=== PATIENT | male | born 1950 | race Caucasian/White ===

== ENCOUNTER 2017-06-04 13:21 | Emergency (ER) | payer MEDICARE, OTHER ==
[~2017-06-04] VITALS: Ht 177.8 cm; Wt 95.3 kg
[~2017-06-04 13:21] MED LIST: ATEN-41; FENO145T; HYDR25TA4; SIMV5TAB53
[2017-06-04 13:25] VITALS: BP_SYST 163
--- NOTE | 2017-06-04 13:30 | NUR ---
Patient to ER bed 07 to gown for evaluation. Side rails up. Report given to Gaye
--- NOTE | 2017-06-04 13:36 | NUR ---
ER at bedside examining patient.
--- NOTE | 2017-06-04 13:39 | NUR ---
pt left eye hit by a baseball while playing with his grandson 2 hours ago, a hematoma bruising to left eye and superfacial abrasion with mimimal bleeding.pt reports he passed out for a few seconds.PT is fully awake,alert oriented x4.
[2017-06-04] MEDS ORDERED: HYDROcodone/ACETAMIN 5-325 MG TAB (NORCO/ VICODIN) PO ONE (14:30)
--- NOTE | 2017-06-04 15:15 | NUR ---
Patient given written and verbal discharge instructions and verbalizes understanding. ER MD discussed with patient the results and treatment provided. Patient in stable condition. ID arm band removed. Rx of AMOXICILLIN AND NORCO given. Patient educated on pain management and to follow up with PMD. Pain Scale 2/10. Opportunity for questions provided and answered.
[2017-06-04 15:17] VITALS: BP_SYST 150
== END 2017-06-04 15:15 | disposition home or self-care (01) ==
LOC: SED 13:21
DX: S02.32XA Fracture of orbital floor, left side, initial encounter for closed fracture (principal); S02.2XXA Fracture of nasal bones, initial encounter for closed fracture; I10 Essential (primary) hypertension; Z79.899 Other long term (current) drug therapy; W21.03XA Struck by baseball, initial encounter; Y93.64 Activity, baseball; Y92.89 Other specified places as the place of occurrence of the external cause; Y99.8 Other external cause status
CPT/HCPCS: 70480; 99284

== ENCOUNTER 2017-12-12 12:20 | Inpatient (IN) | payer OTHER ==
[~2017-12-12] VITALS: Ht 172.7 cm; Wt 92.5 kg
[2017-12-12] VITALS (7 sets, daily range): BP systolic 116–139
[2017-12-12] MEDS ORDERED: NACL 0.9% 1,000 ML IV ONE ×3 (13:38→22:00)
[2017-12-12] MEDS ORDERED: ONDANSETRON HCL 4 MG/2 ML VIAL IVP ONE (13:45)
[2017-12-12] MEDS ORDERED: HYDROmorphone 1 MG INJ. 1 MG/ML AMPUL IVP ONE (13:45)
[2017-12-12] MEDS ORDERED: HYDROmorphone 2 MG/ML VIAL ONE (13:51)
[2017-12-12 14:02] LABS: CALCIUM 9.1 mg/dL (8.4-11.0); CREATININE 1.98 mg/dL (0.55-1.30); POTASSIUM 3.2 mmol/L (3.5-5.1)
[2017-12-12 14:13] LABS: BASOPHILS % (AUTO) 0.3 % (0.0-2.0); HEMATOCRIT 45.1 % (36-54); HEMOGLOBIN 14.8 g/dL (14.0-18.0); LYMPHOCYTES # (AUTO) 0.9 K/uL (1.0-5.5); LYMPHOCYTES % (AUTO) 6.8 % (20.5-51.5); MEAN CORPUSCULAR HEMOGLOBIN 29 pg (27-31); MEAN CORPUSCULAR HGB CONC 33 % (32-36); MEAN CORPUSCULAR VOLUME 89 fL (79.0-98.0); MONOCYTES # (AUTO) 1.1 K/uL (0.0-1.0); MONOCYTES % (AUTO) 8.3 % (1.7-9.3); NEUTROPHILS # (AUTO) 11.5 K/uL (1.8-7.7); NEUTROPHILS % (AUTO) 84.6 % (40.0-70.0); PLATELET COUNT (AUTO) 186 K/uL (130-430); RED BLOOD CELL COUNT(AUTO) 5.04 MIL/uL (4.2-6.2); WHITE BLOOD COUNT (AUTO) 13.5 K/uL (4.8-10.8)
[2017-12-12 14:14] LABS: TOTAL BILIRUBIN 0.6 mg/dL (0.0-1.0)
[2017-12-12 14:19] LABS: BILIRUBIN,URINE NEGATIVE (NEGATIVE); BLOOD, URINE TRACE (NEGATIVE); CLARITY/URINE CLEAR (CLEAR); COLOR,URINE YELLOW (YELLOW); GLUCOSE,URINE NEGATIVE (NEGATIVE); KETONES,URINE NEGATIVE (NEGATIVE); LEUKOCYTE ESTERASE ,URINE NEGATIVE (NEGATIVE); PH,URINE 5.5 (5.0-8.0); PROTEIN URINE 2+ (NEGATIVE)
[2017-12-12 14:20] LABS: NITRITE, URINE NEGATIVE (NEGATIVE); UROBILINOGEN,URINE 0.2 (0.2-1.0)
[2017-12-12 14:31] LABS: INR 1.1 (0.80-1.20); PROTHROMBIN TIME 10.8 SECS (9.5-12.5)
[2017-12-12 14:47] LABS: BACTERIA,URINE MODERATE /HPF (None Seen); RBC,URINE 0-3 /HPF (0-3)
[2017-12-12] MEDS ORDERED: cefTRIAXone 2 GM VIAL ONE (15:47)
[2017-12-12] MEDS ORDERED: ONDANSETRON HCL 4 MG/2 ML VIAL IVP PRN (17:45)
[2017-12-12] MEDS: ACETAMINOPHEN 325 MG TABLET PO PRN ×2 (20:15→23:58)
[2017-12-12] MEDS: D5NS 1,000 ML IV SCH (20:16)
[2017-12-13] VITALS (24 sets, daily range): BP systolic 109–164
[2017-12-13] MEDS: LORazepam 2 MG/ML VIAL IVP PRN ×3 (00:15→23:08)
[2017-12-13] MEDS: MORPHINE 2 MG/ML INJ. SYRINGE IVP PRN ×4 (00:37→19:50)
[2017-12-13] MEDS ORDERED: MORPHINE 2 MG/ML INJ. SYRINGE ONE (00:37)
[2017-12-13] MEDS ORDERED: LEVOFLOXACIN 500 MG/D5W 100 ML IV ONE ×2 (01:00→01:09)
[2017-12-13] MEDS ORDERED: LEVOFLOXACIN 500 MG/D5W 100 ML IV SCH (01:00)
[2017-12-13] MEDS: ACETAMINOPHEN 325 MG TABLET PO PRN ×4 (04:33→17:37)
[2017-12-13] MEDS: D5NS 1,000 ML IV SCH ×3 (04:42→20:50)
[2017-12-13 06:44] LABS: MEAN CORPUSCULAR HEMOGLOBIN 31 pg (27-31); MEAN CORPUSCULAR HGB CONC 34 % (32-36); MEAN CORPUSCULAR VOLUME 90 fL (79.0-98.0); PLATELET COUNT (AUTO) 133 K/uL (130-430); RED CELL DISTRIBUTION WIDTH 12.8 % (9.0-15.0); WHITE BLOOD COUNT (AUTO) 12.1 K/uL (4.8-10.8)
[2017-12-13 07:17] LABS: ALBUMIN 2.9 g/dL (3.4-4.8); CALCIUM 7.9 mg/dL (8.4-11.0); CREATININE 1.83 mg/dL (0.55-1.30); POTASSIUM 3.1 mmol/L (3.5-5.1); TOTAL BILIRUBIN 0.6 mg/dL (0.0-1.0)
[2017-12-13] MEDS ORDERED: TAMS-11 PO (07:57)
[2017-12-13] MEDS: PANTOPRAZOLE SODIUM 40 MG/VIAL (PROTONIX) IVP SCH (08:05)
[2017-12-13] MEDS: PIPERACILLIN/TAZO 2.25G/DEX-IS 50 ML IV SCH ×4 (09:23→23:13)
[2017-12-13] MEDS: TAMSULOSIN HCL 0.4 MG CAP PO SCH (09:37)
[2017-12-13 10:15] LABS: BAND % (MANUAL) 12 % (0-6); BASOPHILS % (MANUAL) 0 % (0-2); EOSINOPHILS % (MANUAL) 0 % (0-7); LYMPHOCYTES % (MANUAL) 11 % (20-46); MONOCYTES % (MANUAL) 6 % (0-11)
[2017-12-13] MEDS ORDERED: GENTAMICIN 100 mg/50 mL NS 50 ML IV ONE (12:00)
[2017-12-13] MEDS ORDERED: POTASSIUM CHLORIDE 40 MEQ, LIDOCAINE JECT 2% PF 100 MG 50 MG in NS 250 ML IV ONE (14:30)
[2017-12-13] MEDS ORDERED: cefTRIAXone 1 GM IVPB PREMIX 50 ML IV SCH (21:00)
[2017-12-13] MEDS ORDERED: FENO160 PO (21:01)
[2017-12-13] MEDS ORDERED: ATEN-41 PO (21:01)
[2017-12-13] MEDS ORDERED: SIMV40TA2 PO (21:01)
[2017-12-13] MEDS ORDERED: TRIA1CAP53 PO (21:01)
[2017-12-14] VITALS (17 sets, daily range): BP systolic 125–165
[2017-12-14] MEDS ORDERED: TEMAZEPAM 15 MG CAPSULE PO PRN (01:45)
[2017-12-14] MEDS ORDERED: TEMAZEPAM 15 MG CAPSULE ONE (01:52)
[2017-12-14] MEDS: PIPERACILLIN/TAZO 2.25G/DEX-IS 50 ML IV SCH ×4 (05:07→23:37)
[2017-12-14 06:45] LABS: HEMATOCRIT 35.5 % (36-54); HEMOGLOBIN 12.1 g/dL (14.0-18.0); MEAN CORPUSCULAR HEMOGLOBIN 31 pg (27-31); MEAN CORPUSCULAR HGB CONC 34 % (32-36); MEAN CORPUSCULAR VOLUME 91 fL (79.0-98.0); PLATELET COUNT (AUTO) 117 K/uL (130-430); RED BLOOD CELL COUNT(AUTO) 3.92 MIL/uL (4.2-6.2); RED CELL DISTRIBUTION WIDTH 13.1 % (9.0-15.0); WHITE BLOOD COUNT (AUTO) 11.9 K/uL (4.8-10.8)
[2017-12-14] MEDS: D5NS 1,000 ML IV SCH ×2 (07:11→17:12)
[2017-12-14 07:14] LABS: ALBUMIN 2.6 g/dL (3.4-4.8); CREATININE 1.41 mg/dL (0.55-1.30); POTASSIUM 3.4 mmol/L (3.5-5.1); TOTAL BILIRUBIN 0.7 mg/dL (0.0-1.0)
[2017-12-14] MEDS: ACETAMINOPHEN 325 MG TABLET PO PRN (08:15)
[2017-12-14] MEDS: TAMSULOSIN HCL 0.4 MG CAP PO SCH (08:15)
[2017-12-14] MEDS: PANTOPRAZOLE SODIUM 40 MG/VIAL (PROTONIX) IVP SCH (08:15)
[2017-12-14] MEDS: IBUPROFEN 400 MG TABLET PO PRN ×3 (09:54→23:38)
[2017-12-14 10:52] LABS: BAND % (MANUAL) 4 % (0-6); LYMPHOCYTES % (MANUAL) 6 % (20-46)
[2017-12-14 10:53] LABS: BASOPHILS % (MANUAL) 0 % (0-2); EOSINOPHILS % (MANUAL) 0 % (0-7); MONOCYTES % (MANUAL) 7 % (0-11)
[2017-12-14] MEDS: LORazepam 2 MG/ML VIAL IVP PRN (23:39)
[2017-12-15] MEDS: IBUPROFEN 400 MG TABLET PO PRN ×2 (03:06→16:37)
[2017-12-15 04:00] VITALS: BP_SYST 157
[2017-12-15 06:52] LABS: BASOPHILS % (AUTO) 0.3 % (0.0-2.0); EOSINOPHILS # (AUTO) 0.2 K/uL (0.0-0.4); EOSINOPHILS % (AUTO) 1.7 % (0.0-4.0); HEMATOCRIT 36.9 % (36-54); HEMOGLOBIN 12.7 g/dL (14.0-18.0); LYMPHOCYTES # (AUTO) 1.3 K/uL (1.0-5.5); LYMPHOCYTES % (AUTO) 12.1 % (20.5-51.5); MEAN CORPUSCULAR HEMOGLOBIN 31 pg (27-31); MEAN CORPUSCULAR HGB CONC 34 % (32-36); MEAN CORPUSCULAR VOLUME 90 fL (79.0-98.0); MONOCYTES # (AUTO) 0.7 K/uL (0.0-1.0); MONOCYTES % (AUTO) 6.4 % (1.7-9.3); NEUTROPHILS # (AUTO) 8.9 K/uL (1.8-7.7); NEUTROPHILS % (AUTO) 79.5 % (40.0-70.0); PLATELET COUNT (AUTO) 143 K/uL (130-430); RED CELL DISTRIBUTION WIDTH 13.3 % (9.0-15.0); WHITE BLOOD COUNT (AUTO) 11.1 K/uL (4.8-10.8)
[2017-12-15] MEDS: PIPERACILLIN/TAZO 2.25G/DEX-IS 50 ML IV SCH ×4 (06:56→23:39)
[2017-12-15 07:02] LABS: ALBUMIN 2.6 g/dL (3.4-4.8); CALCIUM 8.7 mg/dL (8.4-11.0); CREATININE 1.29 mg/dL (0.55-1.30); POTASSIUM 3.3 mmol/L (3.5-5.1); TOTAL BILIRUBIN 0.8 mg/dL (0.0-1.0)
[2017-12-15 07:35] VITALS: BP_SYST 136
[2017-12-15] MEDS: TAMSULOSIN HCL 0.4 MG CAP PO SCH (09:07)
[2017-12-15] MEDS: PANTOPRAZOLE SODIUM 40 MG/VIAL (PROTONIX) IVP SCH (09:07)
[2017-12-15] MEDS ORDERED: POTASSIUM CHLORIDE 20 MEQ TAB.PRT.SR PO ONE (10:30)
[2017-12-15 11:35] VITALS: BP_SYST 156
[2017-12-15 15:45] VITALS: BP_SYST 156
[2017-12-15 17:04] VITALS: BP_SYST 151
[2017-12-15] MEDS ORDERED: hydrALAZINE HCL 25 MG TABLET PO PRN (20:00)
[2017-12-15 20:10] VITALS: BP_SYST 154
[2017-12-15] MEDS: MORPHINE 2 MG/ML INJ. SYRINGE IVP PRN (20:17)
[2017-12-16 00:02] VITALS: BP_SYST 159
[2017-12-16] MEDS: IBUPROFEN 400 MG TABLET PO PRN ×2 (00:51→08:37)
[2017-12-16] MEDS: MORPHINE 2 MG/ML INJ. SYRINGE IVP PRN (04:02)
[2017-12-16 04:09] VITALS: BP_SYST 154
[2017-12-16] MEDS: PIPERACILLIN/TAZO 2.25G/DEX-IS 50 ML IV SCH (06:07)
[2017-12-16 08:00] VITALS: BP_SYST 155
[2017-12-16] MEDS: TAMSULOSIN HCL 0.4 MG CAP PO SCH (08:36)
[2017-12-16] MEDS: PANTOPRAZOLE SODIUM 40 MG/VIAL (PROTONIX) IVP SCH (08:36)
[2017-12-16 10:23] VITALS: BP_SYST 155
[2017-12-16] MEDS ORDERED: LEVO500T20 PO (10:42)
[2017-12-16] MEDS ORDERED: FENOFIBRATE NANOCRYSTALLIZED 48 MG TABLET (TRICOR) PO ONE (10:45)
[2017-12-16] MEDS ORDERED: ATENOLOL 25 MG TABLET(TENORMIN) PO ONE (10:45)
[2017-12-16] MEDS ORDERED: TAMSULOSIN HCL 0.4 MG CAP PO ONE (10:45)
[2017-12-16] MEDS ORDERED: SIMVASTATIN 40 MG TABLET PO SCH (18:00)
[2017-12-17] MEDS ORDERED: ATENOLOL 25 MG TABLET(TENORMIN) PO SCH (09:00)
[2017-12-17] MEDS ORDERED: TAMSULOSIN HCL 0.4 MG CAP PO SCH (09:00)
[2017-12-17] MEDS ORDERED: FENOFIBRATE NANOCRYSTALLIZED 48 MG TABLET (TRICOR) PO SCH (09:00)
== END 2017-12-16 11:05 | disposition home or self-care (01) | DRG 871 ==
LOC: SED 12:20 → SIC 17:30 → STU 12-14 11:26 → SMU 12-15 22:46
PROVIDERS: ADMIT Internal Medicine Hospice and Palliative Medicine; ATTEND Internal Medicine Hospice and Palliative Medicine
DX: A41.9 Sepsis, unspecified organism (principal); G93.41 Metabolic encephalopathy; N17.0 Acute kidney failure with tubular necrosis; N10 Acute pyelonephritis; N18.3 Chronic kidney disease, stage 3 (moderate); E78.00 Pure hypercholesterolemia, unspecified; E29.1 Testicular hypofunction; N52.9 Male erectile dysfunction, unspecified; N40.1 Benign prostatic hyperplasia with lower urinary tract symptoms; R33.8 Other retention of urine; I12.9 Hypertensive chronic kidney disease with stage 1 through stage 4 chronic kidney disease, or unspecified chronic kidney disease; Z90.49 Acquired absence of other specified parts of digestive tract; Z87.442 Personal history of urinary calculi; Z80.42 Family history of malignant neoplasm of prostate
CPT/HCPCS: 36415; 70450-TC; 80053; 80170-TC; 81000-TC; 82150-TC; 83605; 83690-TC; 85007; 85025; 85027; 85610-TC; 85730-TC; 87040-TC; 87081; 87086; 87186-TC; 93005; 96361; 96365; 96375; 97110-GP; 97116-GP; 97530-GP; 99285; C9113; J0696; J1170; J1580; J1956; J2060; J2270; J2405; J2543; J3480; J7030; J7042; J7050; J7060